=== PATIENT | male | born 1955 | race American Indian/Alaskan Native ===

== ENCOUNTER 2018-11-07 21:11 | Emergency (ER) | payer OTHER, SELFPAY ==
[2018-11-07 21:19] VITALS: BP 146/84; PULSE 86; RESP 14; O2SAT 98
--- NOTE | 2018-11-07 21:47 | DI.CT.S_ITS ---
PROCEDURE: CT HEAD/BRAIN WO CON INDICATIONS: fall, loc this am. hip pain TECHNIQUE: Noncontrast 4.5 mm thick angled axial sections acquired from the foramen magnum to the vertex, with coronal and sagittal reformats. For radiation dose reduction, the following was used: automated exposure control, adjustment of mA and/or kV according to patient size. COMPARISON: None. FINDINGS: Image quality: Excellent. CSF spaces: Basal cisterns are patent. No extra-axial fluid collections. The ventricles are symmetric in size and shape. Brain: No intracranial bleeds or masses. There is cerebral volume loss for age, with resultant ventricular and sulcal prominence. There are periventricular and deep white matter chronic small vessel ischemic changes. There is intracranial internal carotid artery and vertebral artery atherosclerosis. Skull and face: Calvarium and visualized facial bones appear intact, without suspicious lesions. Sinuses: Visualized sinuses and mastoids are clear. IMPRESSION: No acute intracranial disease process. Dictated by: Ursula Schulte MD, PhD on 11/08/2018 at 7:15 Approved by: Ursula Schulte MD, PhD on 11/08/2018 at 7:17
--- NOTE | 2018-11-07 21:47 | DI.RAD.S_ITS ---
PROCEDURE: XR KNEE LT 3V INDICATIONS: knee pain TECHNIQUE: 3 views of the knee were acquired. COMPARISON: None. FINDINGS: Bones: There is suggestion of prior ACL repair with postsurgical changes and surgical screw in proximal tibia shaft. Alignment of left knee is anatomic. No fractures or dislocations. No gross our loosening of failure. 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 No suspicious bony lesions. Soft tissues: Moderate joint effusion is noted. No suspicious soft tissue calcifications. IMPRESSION: Prior ACL repair. Moderate tricompartment osteoarthritis. Moderate amount of joint effusion. No gross acute fracture or dislocation. Dictated by: Jaciel Pyle M.D. on 11/08/2018 at 8:53 Approved by: Jaciel Pyle M.D. on 11/08/2018 at 8:55
--- NOTE | 2018-11-07 21:47 | DI.RAD.S_ITS ---
PROCEDURE: XR WRIST LT MIN 3V INDICATIONS: wrist 'pain, ulnar distal TECHNIQUE: 3 views of the wrist were acquired. COMPARISON: None. FINDINGS: Bones: Small calcification adjacent to radial aspect of scaphoid, which may represent age-indeterminate avulsion injury. Small calcification within lateral aspect of order carpal joint space is also seen, which could represent age-indeterminate avulsion injury. No other fracture or dislocation is seen. Mild osteoarthritic changes along right aspect of left wrist is seen. No suspicious bony lesions. Soft tissues: Soft tissue swelling over ulnar aspect of left wrist is seen. IMPRESSION: Tiny calcification adjacent to radial aspect of the distal scaphoid and within radial aspect of all carpal joint, suggestive of avulsion injuries of indeterminate age. Soft tissue swelling over ulnar aspect of left wrist. No other fracture or dislocation is seen. Mild wrist joint osteoarthritis. Dictated by: Jaciel Pyle M.D. on 11/08/2018 at 8:48 Approved by: Jaciel Pyle M.D. on 11/08/2018 at 8:53
--- NOTE | 2018-11-07 21:47 | DI.RAD.S_ITS ---
PROCEDURE: XR CHEST 1V INDICATIONS: fall TECHNIQUE: One view of the chest was acquired. COMPARISON: None. FINDINGS: Surgical changes and devices: None. Lungs and pleura: No pleural effusions or pneumothorax. Lungs are clear. Mediastinum: Mediastinal contours appear normal. Heart size is mildly enlarged. Bones and chest wall: No suspicious bony lesions. Overlying soft tissues appear unremarkable. IMPRESSION: No acute cardiopulmonary pathology. Dictated by: Jaciel Pyle M.D. on 11/08/2018 at 8:57 Approved by: Jaciel Pyle M.D. on 11/08/2018 at 8:59
--- NOTE | 2018-11-07 21:47 | DI.RAD.S_ITS ---
PROCEDURE: XR HIP W PEL IF DONE LT 2V INDICATIONS: fall, hip pain TECHNIQUE: AP pelvis with lateral view(s) of the left hip(s). COMPARISON: None. FINDINGS: Bones: Mild symmetric bilateral hip joint osteoarthritic changes are seen with joint space narrowing and subchondral sclerosis. No evidence of avascular necrosis. No fractures or dislocations. Pelvic ring appears intact. No suspicious bony lesions. Soft tissues: The visualized bowel gas pattern is normal. No suspicious soft tissue calcifications. IMPRESSION: Mild symmetric bilateral hip joint osteoarthritis. No acute pelvic or hip fracture. Dictated by: Jaciel Pyle M.D. on 11/08/2018 at 8:56 Approved by: Jaciel Pyle M.D. on 11/08/2018 at 8:57
--- NOTE | 2018-11-07 21:53 | ED.TRAUMA ---
HPI - Trauma General Chief Complaint: Extremity Injury, Upper Stated Complaint: / FELL OFF ROOF Time Seen by Provider: 11/07/18 21:34 Source: patient and family Mode of arrival: ambulatory Limitations: no limitations History of Present Illness HPI narrative: This is a 62-year-old male who comes to the emergency department with complaint of fall from roof. Patient states at 9:00 a.m. this morning he had climbed up on a ladder. He was at the level of the roof when the ladder gave way and he believes he fell about 14 ft. Patient states he landed on his left arm as well as buttock and hip and rolled backwards. He is not sure that he hit his head but states that he did have a minute or 2 where he was not quite himself and had trouble recognizing woman asking if he she needed help. He does take an aspirin daily. Patient is denying any neck or back pain currently. Main pain is in his left wrist, his left hip as well as knee. He has been ambulating on his lower extremity today but has come increasingly uncomfortable as the day goes by. He saw his primary care physician and they were going to get some imaging of his wrist but then he started having more pain in the hip as well. He has had naproxen today with some improvement. He denies any other abrasions or injuries. Review of Systems Review of Systems All systems reviewed & are unremarkable except as noted in HPI and below Constitutional Denies weakness and Reports other (? LOC) Eyes Denies change in vision ENT Ears, Nose, Mouth, and Throat: Denies dizziness and Denies neck pain Cardiovascular Denies chest pain, Denies syncope, Denies lightheadedness, Denies dyspnea and Denies dyspnea on exertion Respiratory Denies chest congestion, Denies cough, Denies pain on inspiration, Denies dyspnea, Denies dyspnea on exertion and Denies wheezing Gastrointestinal Gastrointestinal: Denies abdominal pain, Denies change in bowel habits, Denies diarrhea, Denies nausea and Denies vomiting Genitourinary Denies hematuria, Denies difficulty urinating, Denies flank pain, Denies urinary incontinence and Denies urinary urgency Musculoskeletal Reports as per HPI, Denies back pain, Reports arthralgias (left wrist, hip, knee and ankle), Reports joint swelling (left wrist), Reports limited range of motion (wrist), Denies muscle weakness, Denies neck pain, Denies numbness, Denies stiffness and Denies tingling Integumentary/Breasts Denies rash and Denies wounds Neurologic Reports as per HPI, Denies dizziness, Denies syncope, Denies focal weakness, Denies numbness, Denies convulsions, Denies sensory deficit, Denies tingling, Denies paresthesias and Denies weakness Allergic/Immunologic Denies wheezing Exam Narrative Exam Narrative: GEN: C-collar. Patient appears in moderate distress. HEAD: No evidence of trauma, no raccoon/Barnett sign. NECK: Nontender, painless range of motion, trachea midline Negative Nexus criteria, there is no mid line tenderness, distracting injury, altered mental status, neuro deficit, recent EtOH. EYES: PERRLA, EOMI ENT: External inspection normal, trachea is midline, TM's are normal no hemotypanum, Nares are clear, no septal hematoma, no dental or oral injury, airway is normal and with normal occlusion, No bony tenderness RESP: Chest is nontender and has symmetric movement, no ecchymosis, breath sounds are normal no crackles, wheezes or rales CVS: Heart sounds are normal, no murmur noted, No JVD. ABG/GI: Nontender, soft, normal bowel sounds, no distention, no organomegaly, pelvic rock is negative. NEURO: Oriented AOx3, neuro is grossly intact, sensation and motor is normal all 4 extremities moving, cranial nerves II through XII are intact, GCS is 15 PSYCH: Normal mood and affect SKIN: Intact, warm and dry, no crepitus and without decubitus BACK: No CVA tenderness, no vertebral tenderness, no step-off's, no crepitus EXT: Atraumatic, left hip is moderately tender, no deformity, patient has full range of motion, patient has moderate tenderness of left knee, non-tender ankle, no swelling, no pedal edema, normal color and temperature, normal range of motion of extremities with normal tendon exam, 2+ pulses in all four extremities Patient left wrist has swelling and mild tenderness over the left distal ulna. Initial Vital Signs Initial Vital Signs: Vital Signs Pulse Rate 86 11/07/18 21:19 Respiratory Rate 14 11/07/18 21:19 Blood Pressure 146/84 H 11/07/18 21:19 Pulse Oximetry 98 11/07/18 21:19 Scores GCS Hedy coma scale eye opening: Spontaneous [place] coma scale verbal response: Orientated [place] coma scale motor response: Obey commands [place] coma scale total score: 15 Course Orders Ordered: ED Orders 11/07/18 21:47 CT head/brain wo con Stat XR chest 1V Stat XR hip w pel if done LT 2V Stat XR knee LT 3V Stat XR wrist LT min 3V Stat 11/07/18 22:40 Complete Blood Count AUTO DIFF Stat Comprehensive Metabolic Panel Stat Lipase Stat Partial Thromboplastin Time Stat Prothrombin Time INR Stat Discontinued Medications Acetaminophen (Tylenol) 975 mg PO NOW ONE Stop: 11/07/18 21:53 Last Admin: 11/07/18 22:23 Dose: 975 mg Vital Signs - 8 hr 11/07/18 21:19 11/07/18 23:51 Pulse Rate 86 60 Respiratory Rate 14 18 Blood Pressure 146/84 H Blood Pressure [Left Arm] 144/81 H Pulse Oximetry 98 99 MDM - Trauma Lab Data Result diagrams: 11/07/18 22:40 11/07/18 22:40 Lab Results 11/07/18 11/07/18 11/07/18 Range/Units 22:40 22:40 22:40 WBC 9.8 (4.5-11.0) X10^3/uL RBC 4.43 L (4.5-5.9) X10^6/uL Hgb 13.9 (13.5-17.5) g/dL Hct 40.6 L (41-53) % MCV 91.7 (80-100) fL MCH 31.4 (26-34) PG MCHC 34.3 (30-36) % RDW 14.0 (11.6-14.8) % Plt Count 203 (150-400) X10^3/uL Neut % (Auto) 65.0 (50-75) % Lymph % (Auto) 19.6 L (25-40) % [place] % (Auto) 11.0 (3-14) % Eos % (Auto) 4.0 (2-4) % Baso % (Auto) 0.4 (0-2) % Neut # (Auto) 6400 H (1249-8758) /uL PT 11.9 (10.1-12.7) SECONDS INR 1.0 (0.9-1.3) APTT 29 (26.4-36.2) SECONDS Sodium 143 (137-145) mmol/L Potassium 4.0 (3.4-5.1) mmol/L Chloride 109 H (98-107) mmol/L Carbon Dioxide 23 (22-32) mmol/L BUN 22 H (9-20) mg/dL Creatinine 0.90 (0.66-1.25) mg/dL Estimated GFR > 60.0 (>60) mL/min BUN/Creatinine Ratio 24.4 H (6-22) Glucose 99 (80-110) mg/dL Calcium 9.0 (8.4-10.2) mg/dL Total Bilirubin 0.7 (0.2-1.3) mg/dL AST 30 (17-59) IU/L ALT 30 (21-72) IU/L Alkaline Phosphatase 60 (38-126) U/L Total Protein 7.2 (6.3-8.2) g/dL Albumin 4.0 (3.5-5.0) g/dL Globulin 3.2 (1.7-4.1) g/dL Albumin/Globulin Ratio 1.3 (1.0-2.8) Lipase 55 (23-300) U/L Imaging Data CT scan - head: Radiologist's impression: nap Chest x-ray: My impression: nap left wrist: My impression: no fracture left hip: Radiologist's impression: Degenerative changes no acute process involving the pelvis. No displaced fracture dislocation of the left hip. left knee: Radiologist's impression: Moderate to marked tricompartmental degenerative changes. No definitive displaced fracture. No dislocation. Postoperative changes. Suspect small suprapatellar effusion. MDM Narrative Medical decision making narrative: Patient clinically cleared C-spine. Suspect he might have a mild concussion. No fractures noted on imaging. Discharge Plan Departure Patient Disposition: Home Clinical Impression: Hip pain, left, Left wrist pain, Fall, Concussion Discharge Date/Time: 11/08/18 00:10 Interventions: ED Discharge Assessment Last Done: 11/08/18 00:28 Instructions: DI for Concussion Activity Restrictions/Additional Instructions: Follow-up with primary care in the next 5-7 days for recheck. Your x-ray imaging does not show any clear fracture but if you're continuing to have pain over the next week or follow up with her physician or return for repeat imaging. Continue take naproxen and/or ibuprofen as needed. You may also take Tylenol with either of these medications. You may take at 1000 mg every 8 hr as needed for pain. Use heat or ice to the affected areas as needed. Return to the emergency department for sudden severe headaches, new neck or back pain, new numbness, weakness, persistent vomiting, vision changes or other new or concerning symptoms. Splint Care: Keep splint clean and dry. Elevated affected body part to decrease swelling. OK to use ice pack on the affected body part. Use for 15-20 minutes each time, for 5-6x per day. If you develop worsening pain, numbness, tingling, discoloration of the affected body part, loosen the splint by loosening the KOBE wrap, and either see your doctor for an urgent re-assessment, or return to the Emergency Department. Return to the Emergency Department for any new or worsening symptoms. Stand Alone Forms: Work Release Note
[2018-11-07] MEDS: ACETAMINOPHEN 325 MG TABLET 975 MG PO (22:23)
[2018-11-07 22:51] LABS: Add Manual Diff / Slide Review NO; Basophils Percent Auto 0.4 % (0-2); Hematocrit 40.6 % (41-53); Hemoglobin 13.9 g/dL (13.5-17.5); Lymphocytes Percent Auto 19.6 % (25-40); Mean Corpuscular HGB Conc 34.3 % (30-36); Mean Corpuscular Hemoglobin 31.4 PG (26-34); Mean Corpuscular Volume 91.7 fL (80-100); Neutrophils Absolute Auto 6400 /uL (3000-5900); Platelet Count 203 X10^3/uL (150-400); Red Blood Cell Count 4.43 X10^6/uL (4.5-5.9); White Blood Cell Count 9.8 X10^3/uL (4.5-11.0)
[2018-11-07 22:57] LABS: Prothrombin Time 11.9 SECONDS (10.1-12.7)
[2018-11-07 22:59] LABS: PTT Partial Thromboplastin Tim 29 SECONDS (26.4-36.2)
[2018-11-07 23:01] LABS: Alanine Aminotransferase 30 IU/L (21-72); Albumin Globulin Ratio 1.3 (1.0-2.8); Alkaline Phosphatase 60 U/L (38-126); Aspartate Aminotransferase 30 IU/L (17-59); BUN Creatinine Ratio 24.4 (6-22); Bilirubin Total 0.7 mg/dL (0.2-1.3); Blood Urea Nitrogen 22 mg/dL (9-20); Carbon Dioxide 23 mmol/L (22-32); Chloride 109 mmol/L (98-107); Estimated Glomerular Filt Rate > 60.0 mL/min (>60); Globulin 3.2 g/dL (1.7-4.1); Glucose 99 mg/dL (80-110); HEMOLYSIS 18 (0-50); Lipase 55 U/L (23-300); Sodium 143 mmol/L (137-145); Total Protein 7.2 g/dL (6.3-8.2)
[2018-11-07 23:51] VITALS: BP 144/81; PULSE 60; RESP 18; O2SAT 99
== END 2018-11-08 00:10 | disposition home or self-care (01) ==
PROVIDERS: Emergency Provider Emergency Medicine
DX: M25.532 Pain in left wrist (principal); M25.552 Pain in left hip; S06.0X9A Concussion with loss of consciousness of unspecified duration, initial encounter; W13.2XXA Fall from, out of or through roof, initial encounter
CPT/HCPCS: 29280; 36415; 70450; 71045; 73110; 73502; 73562; 80053; 83690; 85025; 85610; 85730; 99282; 99284

== ENCOUNTER 2018-12-04 00:51 | Emergency (ER) | payer OTHER, SELFPAY ==
[2018-12-04] VITALS (10 sets, daily range): BP systolic 127–149; BP diastolic 66–92; PULSE 59–67; RESP 16–24; TEMP 36.8–37; O2SAT 97–99; BMI 30.5
--- NOTE | 2018-12-04 00:55 | DI.CT.S_ITS ---
PROCEDURE: CT HEAD/BRAIN WO CON INDICATIONS: possible stroke TECHNIQUE: Noncontrast 4.5 mm thick angled axial sections acquired from the foramen magnum to the vertex, with coronal and sagittal reformats. For radiation dose reduction, the following was used: automated exposure control, adjustment of mA and/or kV according to patient size. COMPARISON: None. FINDINGS: Image quality: Excellent. CSF spaces: Basal cisterns are patent. No extra-axial fluid collections. The ventricles are symmetric in size and shape. Brain: No intracranial bleeds or masses. There is mild cerebral volume loss for age, with resultant ventricular and sulcal prominence. There are mild periventricular and deep white matter chronic small vessel ischemic changes. There is intracranial internal carotid artery atherosclerosis. Skull and face: Calvarium and visualized facial bones appear intact, without suspicious lesions. Sinuses: Visualized sinuses and mastoids are clear. IMPRESSION: No acute intracranial disease process. Dictated by: Ursula Schulte MD, PhD on 12/04/2018 at 8:03 Approved by: Ursula Schulte MD, PhD on 12/04/2018 at 8:04
--- NOTE | 2018-12-04 01:06 | ED_ITS ---
HPI - Nausea/Vomiting/Diarrhea General Chief complaint: Neuro Symptoms/Deficit Stated complaint: Lt arm numbness Time Seen by Provider: 12/04/18 00:54 Source: patient, family and EMS Mode of arrival: EMS Limitations: no limitations History of Present Illness HPI Narrative: Patient is a 63-year-old otherwise healthy male here for evaluation of right arm numbness and tingling. Patient arrived home from a event last night at approximately 2100 hr. He states that he was normal at that time. Initially he stated that he went to bed at 0930 to nursing staff but then told me that he went to bed at 1000 hr. He states that he was normal when he went to bed. Initially told nursing staff that he woke up approximately 40 min prior to arrival with tingling in his right arm and numbness in his right arm. He told me that he thinks he woke up at approximately 1100 hr with the symptoms. Patient states that he fell because of the tingling in his right arm. No injuries from the fall. States that he does have a slight headache but he he attributes that to being dehydrated. Denies any other symptoms. He thinks that his right arm symptoms may have improved slightly since the onset but have not improved over the past 1 hr. Review of Systems Constitutional Denies fatigue, Denies fever(s), Reports headache(s), Denies lethargy, Denies malaise and Denies weakness Eyes Denies blurry vision, Denies diplopia and Denies loss of vision ENT Ears, Nose, Mouth, and Throat: Denies vertigo, Denies dizziness, Reports headache(s), Denies disequilibrium, Denies sore throat and Denies throat swelling Cardiovascular Denies chest pain, Denies palpitations and Denies dyspnea Respiratory Denies cough and Denies dyspnea Gastrointestinal Gastrointestinal: Denies abdominal pain, Denies diarrhea, Denies nausea and Denies vomiting Genitourinary Denies dysuria Musculoskeletal Denies myalgias, Denies arthralgias, Denies muscle weakness, Reports numbness ( Right arm) and Reports tingling Integumentary/Breasts Denies lesions and Denies rash Neurologic Denies vertigo, Denies dizziness, Reports headache(s), Denies loss of vision, Reports numbness (Right arm), Denies radicular pain, Reports sensory deficit ( Right upper extremity), Reports tingling, Reports paresthesias, Denies disequilibrium and Denies weakness Endocrine Denies fatigue, Denies flushing and Denies palpitations Hematologic/Lymphatic Comments: Not on anticoagulation Allergic/Immunologic Denies urticaria and Denies throat swelling PFSH Medical History Healthy adult (Acute) Surgical History No pertinent past surgical history (Acute) Social History marital status: unmarried,single lives independently: Yes Exam Initial Vital Signs Initial Vital Signs: Vital Signs Pulse Rate 62 12/04/18 01:02 Respiratory Rate 16 12/04/18 01:02 Blood Pressure 140/75 12/04/18 01:02 Pulse Oximetry 97 12/04/18 01:02 Const General: cooperative, healthy appearing, comfortable, well developed, well groomed and No acute distress Orientation: alert, awake and oriented x3 HENMT Head: normal to inspection Eyes Pupils: PERRL EOM: EOM intact bilaterally Chest Chest: normal inspection of the chest Resp Effort & Inspection: normal respiratory effort Auscultation: clear to auscultation bilaterally Cardio Rate: regular rate Rhythm: regular rhythm Heart Sounds: no murmurs Pulses: radial pulses present GI Inspection: non-distended Palpation: soft, No firm and No tender Back/Spine/Pelvis Back: No CVA tenderness Skin Lesions: no lesions Rashes: no rashes Neuro General: alert, awake and oriented x3 Speech: speech normal Other: See NIH scale Extrem General: normal to inspection and capillary refill normal Psych Appearance: grossly normal and well kempt Scores GCS [place] coma scale eye opening: Spontaneous [place] coma scale verbal response: Orientated [place] coma scale motor response: Obey commands [place] coma scale total score: 15 NIH Stroke Scale Level of Conciousness: Alert, keenly responsive Ask month/age: Answers both questions correctly. Open/close eyes, close hand: Performs both tasks correctly Best gaze horizontal: Normal Visual estrada: No visual loss Facial palsy: Partial paralysis, total or near total paralysis of lower face Left arm drift: No drift for full 10 sec Right arm drift: Drifts down, not to bed Left leg drift: No drift for full 10 sec Right leg drift: No drift for full 10 sec Limb ataxia: Present in one limb Sensory on face/arms/legs: Mild to moderate sensory loss, can tell touch Best language: No aphasia, normal Dysarthria: Normal Extinction or inattention: No abnormality Total NIH Stroke scale score: 5 Course Orders Ordered: ED Orders 12/04/18 00:55 CT head/brain wo con Stat 12/04/18 00:56 EKG-12 Lead Stat 12/04/18 01:24 Basic Metabolic Panel Stat Complete Blood Count AUTO DIFF Stat Partial Thromboplastin Time Stat Prothrombin Time INR Stat Sodium Chloride (Normal Saline 0.9%) 1,000 mls @ 125 mls/hr IV CONT LEXI Discontinued Medications Alteplase, Recombinant (Activase) 81 mg IV NOW ONE Stop: 12/04/18 01:37 Alteplase, Recombinant (Activase) 9 mg 0.09 mg/kg (9 mg) IV NOW ONE Stop: 12/04/18 01:37 Vital Signs - 8 hr 12/04/18 01:02 12/04/18 01:23 12/04/18 02:00 Temperature 98.6 F Pulse Rate 62 59 L 66 Respiratory Rate 16 18 24 Blood Pressure 140/75 Blood Pressure [Right Arm] 136/72 127/92 H Pulse Oximetry 97 97 98 12/04/18 02:16 12/04/18 02:30 12/04/18 02:36 Temperature 98.3 F Pulse Rate 67 63 Respiratory Rate 16 16 Blood Pressure Blood Pressure [Right Arm] 137/75 129/66 Pulse Oximetry 98 98 MDM - Nausea/Vomiting/Diarrhea Lab Data Attestation: I reviewed the patient's lab results. Result diagrams: 12/04/18 01:24 12/04/18 01:24 Lab Results 12/04/18 12/04/18 12/04/18 Range/Units 01:24 01:24 01:24 WBC 7.6 (4.5-11.0) X10^3/uL RBC 4.61 (4.5-5.9) X10^6/uL Hgb 14.6 (13.5-17.5) g/dL Hct 42.2 (41-53) % MCV 91.5 (80-100) fL MCH 31.8 (26-34) PG MCHC 34.7 (30-36) % RDW 13.5 (11.6-14.8) % Plt Count 201 (150-400) X10^3/uL Neut % (Auto) 61.6 (50-75) % Lymph % (Auto) 23.1 L (25-40) % [place] % (Auto) 11.1 (3-14) % Eos % (Auto) 3.7 (2-4) % Baso % (Auto) 0.5 (0-2) % Neut # (Auto) 4700 (3749-3474) /uL PT 11.2 (10.1-12.7) SECONDS INR 1.0 (0.9-1.3) APTT 29 (26.4-36.2) SECONDS Sodium 142 (137-145) mmol/L Potassium 3.7 (3.4-5.1) mmol/L Chloride 110 H (98-107) mmol/L Carbon Dioxide 22 (22-32) mmol/L BUN 21 H (9-20) mg/dL Creatinine 0.90 (0.66-1.25) mg/dL Estimated GFR > 60.0 (>60) mL/min BUN/Creatinine Ratio 23.3 H (6-22) Glucose 138 H (80-110) mg/dL Calcium 9.1 (8.4-10.2) mg/dL Point of Care Testing Glucose POC [address] scan - head: Radiologist's impression: Normal noncontrast CT scan of the ECG Data Attestation: I personally reviewed and interpreted this ECG as follows: Prior ECG tracings: not available for review Interpretation: Sinus rhythm Ventricular rate is 62 Marked wandering baseline secondary to motion artifact Normal QRS Normal QTC Nonspecific ST T wave changes MDM Narrative Medical decision making narrative: Patient's onset of symptoms sometime between 9:30 and 10:00 pm hr. Patient arrived with informed 0.5 hr of onset of symptoms. Systolic blood pressure less than 180 No other contraindications for tPA. Head CT shows no signs of bleed. Unable to obtain CTA of the head secondary to degradation of capability of the IV pump in the CT scanner. Discussed the case with Dr. Valencia who is on-call for Stroke at [facility]. He recommended discussing tPA with the patient. Patient has an NIH score of 5. Discussed risks and benefits with the patient and family friend who are at bedside. We did discuss the risks and benefits of tPA. We did discuss that this medication could potentially make it better or could potentially cause catastrophic head bleed. Patient expressed understanding of this. He did opt to have the tPA. He was given tPA. Will transfer patient to [facility] for continued evaluation and treatment. Dr. Valencia accepts patient. 0248: Patient reports some improvement in the tingling in his right upper extremity. He is able to do [id number] without extremity much better than when he did before. Minimal if any improvement with the right-sided facial droop. No adverse effects noted from the tPA to this point. Patient does have a bed at [facility]. Transport will be here in approximately 30 min. Patient is stable for transport. He expressed understanding and agreement this plan. Critical Care Time Critical Care Time: Yes Total Critical Care Time: 35 Attestation: The high probability of a clinically significant, sudden or life threatening deterioration of the neurologic system(s) required my full and direct attention , intervention and personal management. The aggregate critical care time was 35 minutes. This time is in addition to time spent performing reported procedures but includes the following: [] Data Review and interpretation [] Patient assessment and monitoring of vital signs [] Documentation [] Medication orders and management Coordination of care Discharge Plan Departure Patient Disposition: [facility] Clinical Impression: Acute ischemic stroke
[2018-12-04] MEDS: SODIUM CHLORIDE 0.9% 1,000 ML 125 ML IV (01:10)
[2018-12-04 01:34] LABS: Add Manual Diff / Slide Review NO; Basophils Percent Auto 0.5 % (0-2); Eosinophils Percent Auto 3.7 % (2-4); Hematocrit 42.2 % (41-53); Hemoglobin 14.6 g/dL (13.5-17.5); Lymphocytes Percent Auto 23.1 % (25-40); Mean Corpuscular HGB Conc 34.7 % (30-36); Mean Corpuscular Hemoglobin 31.8 PG (26-34); Mean Corpuscular Volume 91.5 fL (80-100); Monocytes Percent Auto 11.1 % (3-14); Neutrophils Absolute Auto 4700 /uL (1500-7000); Neutrophils Percent Auto 61.6 % (50-75); Platelet Count 201 X10^3/uL (150-400); Prothrombin Time 11.2 SECONDS (10.1-12.7); Red Blood Cell Count 4.61 X10^6/uL (4.5-5.9); Red Cell Distribution Width 13.5 % (11.6-14.8); White Blood Cell Count 7.6 X10^3/uL (4.5-11.0)
[2018-12-04 01:36] LABS: PTT Partial Thromboplastin Tim 29 SECONDS (26.4-36.2)
[2018-12-04 01:38] LABS: BUN Creatinine Ratio 23.3 (6-22); Blood Urea Nitrogen 21 mg/dL (9-20); Calcium 9.1 mg/dL (8.4-10.2); Carbon Dioxide 22 mmol/L (22-32); Chloride 110 mmol/L (98-107); Estimated Glomerular Filt Rate > 60.0 mL/min (>60); Glucose 138 mg/dL (80-110); HEMOLYSIS < 15 (0-50); Potassium 3.7 mmol/L (3.4-5.1); Sodium 142 mmol/L (137-145)
[2018-12-04] MEDS: ALTEPLASE 100 MG VIAL 9 MG IV (01:59)
--- NOTE | 2018-12-04 01:59 | PC.NURSE ---
Verified TPA dosages with Alisia LEAVITT.
[2018-12-04] MEDS: ALTEPLASE 100 MG VIAL 81 MG IV (02:00)
--- NOTE | 2018-12-04 03:17 | PC.NURSE ---
unable to scan TPA. verified with DAGMAR Chavarria.
== END 2018-12-04 03:43 | disposition short-term general hospital (02) ==
PROVIDERS: Emergency Provider Emergency Medicine
DX: I63.9 Cerebral infarction, unspecified (principal)
CPT/HCPCS: 36591; 70450; 80048; 82962; 85025; 85610; 85730; 93005; 96361; 96374; 96375; 99285; 99291; 99292; J2997